=== PATIENT | female | born 1955 | race Caucasian/White ===

== ENCOUNTER 2022-09-06 08:28 | Day surgery (SDC) | payer MEDICARE ==
[2022-09-01 14:41] VITALS: BMI 29.2
[~2022-09-06 08:28] MED LIST: LACTATED RINGERS 1,000 ML IV SCH; LIDOCAINE 1% (10MG/ML) FOR IV START INTRADERMA PRN
[2022-09-06 08:49] VITALS: RESP 16; TEMP 97.1
[2022-09-06] MEDS ORDERED: IV FLUID CONTINUATION 1,000 ML IV ONE (09:27)
[2022-09-06] MEDS ORDERED: PROPOFOL 10 MG/ML 20 ML VIAL IV ONE (09:43)
--- NOTE | 2022-09-06 10:03 | P.PCN ---
Date of Procedure: 09/06/22 Procedure(s) Performed: BRIEF HISTORY: Patient is a 66-year-old pleasant white female scheduled for an elective colonoscopy as a part of screening for colon cancer and family history of colon cancer. Her dad was diagnosed with colon cancer at age 70. PROCEDURE PERFORMED: Colonoscopy. PREOPERATIVE DIAGNOSIS: Screening for colon cancer and family history of colon cancer. IV sedation per Anesthesia. PROCEDURE: After informed consent was obtained, the patient, was brought into the endoscopy unit. IV sedation was administered by Anesthesia under continuous monitoring. Digital rectal examination was normal. Initially the Olympus CF-160 flexible video colonoscope was then inserted in the rectum, gradually advanced into the cecum without any difficulty. Careful examination was performed as the scope was gradually being withdrawn. Ileocecal valve and the appendiceal orifice were visualized and appeared normal. Prep was excellent. Mucosa of the cecum, ascending colon, transverse colon, descending colon, sigmoid colon, and rectum appeared normal. Scattered sigmoid diverticula cyst. Retroflexion was performed in the rectum and no lesions were seen. The patient tolerated the procedure well. IMPRESSION: Normal-appearing colon from rectum to cecum with no evidence of colorectal neoplasia . Scattered sigmoid diverticulosis. RECOMMENDATIONS: Findings of this examination were discussed with the patient as well as a family. She was advised to have a repeat screening colonoscopy in 10 years..
[2022-09-06 10:23] VITALS: BP 104/64; PULSE 64
== END 2022-09-06 10:35 | disposition home or self-care (01) ==
LOC: ORWHC2ENDO 08:28
PROVIDERS: ATTEND Internal Medicine Gastroenterology
DX: Z12.11 Encounter for screening for malignant neoplasm of colon (principal); K57.30 Diverticulosis of large intestine without perforation or abscess without bleeding; Z80.0 Family history of malignant neoplasm of digestive organs; K21.9 Gastro-esophageal reflux disease without esophagitis; Z85.3 Personal history of malignant neoplasm of breast; Z79.899 Other long term (current) drug therapy
CPT/HCPCS: G0105; J2704